=== PATIENT | male | born 1970 | race Caucasian/White ===

== ENCOUNTER 2017-10-23 09:01 | Emergency (ER) | payer BC, OTHER ==
[2017-10-23] MEDS: LIDOCAINE 1% (MDV) 10 ML INJ INJ (09:32)
== END 2017-10-23 10:19 | disposition home or self-care (01) ==
LOC: FTE 09:01
DX: S51.811A Laceration without foreign body of right forearm, initial encounter (principal); X99.8XXA Assault by other sharp object, initial encounter
CPT/HCPCS: 12002; 99283-25

== ENCOUNTER 2017-10-27 13:04 | Emergency (ER) | payer BC, OTHER ==
[2017-10-27] MEDS: IBUPROFEN 800 MG TAB PO (14:40)
== END 2017-10-27 15:15 | disposition home or self-care (01) ==
LOC: FTE 13:04
DX: Z48.01 Encounter for change or removal of surgical wound dressing (principal)
CPT/HCPCS: 99284

== ENCOUNTER 2017-10-29 15:59 | Emergency (ER) | payer BC, OTHER ==
[2017-10-29] MEDS: TRIMETHOPRIM/SULFAMETHOX (DS) TAB PO (19:04)
[2017-10-29] MEDS: CEPHALEXIN 500 MG CAP PO (19:04)
== END 2017-10-29 19:06 | disposition home or self-care (01) ==
LOC: E/R 15:59 → FTE 19:06
DX: Z48.01 Encounter for change or removal of surgical wound dressing (principal); T81.4XXA Infection following a procedure, initial encounter; Y79.2 Prosthetic and other implants, materials and accessory orthopedic devices associated with adverse incidents
CPT/HCPCS: 99284

== ENCOUNTER 2017-10-31 13:11 | Emergency (ER) | payer BC, OTHER ==
[2017-10-31] MEDS: CEPHALEXIN 500 MG CAP PO (15:47)
[2017-10-31] MEDS: TRIMETHOPRIM/SULFAMETHOX (DS) TAB PO (15:47)
== END 2017-10-31 16:27 | disposition home or self-care (01) ==
LOC: FTE 13:11
DX: T81.4XXA Infection following a procedure, initial encounter (principal); Y82.9 Unspecified medical devices associated with adverse incidents
CPT/HCPCS: 99284